=== PATIENT | female | born 1990 | race Two or more races ===

== ENCOUNTER 2024-09-10 06:41 | Emergency (ER) | payer MEDICAID, OTHER ==
[~2024-09-10] VITALS: Ht 167.6 cm; Wt 104.3 kg
--- NOTE | 2024-09-10 07:47 | ED.PDOC ---
General HPI Comments 34 y/o F, with no prior medical history presents to the ED for CC of flank pain. Patient states, she has been experiencing left-sided flank pain with associated LLQ abdominal pain, nausea, and vomiting x3days. Patient relays, associated symptoms of dysuria with scant urine production. Patient complains of, current 6/10 pain to her LLQ. Patient denies hematuria, fever, vaginal discharge, or frequency. No other symptoms or modifying factors present at this time. Chief Complaint: Flank Pain Time Seen by MD: 07:40 Reviewed notes: Nurses Notes, Medications, Allergies Allergies: Coded Allergies: No Known Drug Allergy (Verified Allergy, Unknown, 09/10/24) Information Source: Patient Mode of Arrival: Ambulatory Severity: Moderate Timing: Days Duration: Since onset Prehospital treatment: None Onset: Spontaneous Symptoms: None History of: None Location: (L)Flank Modifying factors: None associated signs and symptoms: Nausea, Vomiting, Flank Pain, None Past Medical History PAST MEDICAL HISTORY: Denies Surgical History: Denies all surgeries TRAVEL COUNSELOR History: Denies all TRAVEL COUNSELOR Hx Family History Family History: Unknown Social History Smoker: Non-Smoker Alcohol: Denies ETOH Use Drugs: Denies Drug Use Lives In: Home Constitutional: denies: chills, diaphoresis, fatigue, fever, malaise, sweats, weakness, others EENTM: denies: blurred vision, double vision, ear bleeding, ear discharge, ear drainage, ear pain, ear ringing, eye pain, eye redness, hearing loss, mouth pain, mouth swelling, nasal discharge, nose bleeding, nose congestion, nose pain, photophobia, tearing, throat pain, throat swelling, voice changes, others Respiratory: denies: cough, hemoptysis, orthopnea, SOB at rest, shortness of breath, SOB with excertion, stridor, wheezing, others Cardiovascular: denies: chest pain, dizzy spells, diaphoresis, Dyspnea on exertion, edema, irregular heart beat, left arm pain, lightheadedness, palpitations, PND, syncope, others Gastrointestinal: reports: abdominal pain (LLQ), constipated, nausea, vomiting; denies: abdomen distended, blood streaked bowels, diarrhea, dysphagia, difficulty swallowing, hematemesis, melena, poor appetite, poor fluid intake, rectal bleeding, rectal pain, others Genitourinary: reports: flank pain (LEFT ); denies: abnormal vagina bleeding, burning, dyspareunia, dysuria, frequency, hematuria, incontinence, pain, pregnan t, vagina discharge, urgency, others Neurological: denies: dizziness, fainting, headache, left sided numbness, left sided weakness, numbness, paresthesia, pre-existing deficit, right sided numbness, right sided weakness, seizure, speech problems, tingling, tremors, weakness, others Musculoskeletal: denies: back pain, gout, joint pain, joint swelling, muscle pain, muscle stiffness, neck pain, others Integumetry: denies: bruises, change in color, change in hair/nails, dryness, laceration, lesions, lumps, rash, wounds, others Allergic/Immunocompromised: denies: Difficulty Healing, Frequent Infections, Hives, Itching, others Hematologic/Lymphatic: denies: anemia, blood clots, easy bleeding, easy bruising, swollen glands, others Endocrine: denies: excessive hunger, excessive sweating, excessive thirst, excessive urination, flushing, intolerance to cold, intolerance to heat, unexplained weight gain, unexplained weight loss, others Psychiatric: denies: anxiety, bipolar disorder, depression, hopeless, panic disorder, schizophrenia, sleepless, suicidal, others All Other Systems: Reviewed and Negative Physical Exam General Appearance: No Apparent Distress, Normal HEENT: Normal ENT Inspection, Pharynx Normal Neck: Full Range of Motion, Non-Tender, Normal, Normal Inspection Respiratory: Chest Non-Tender, Lungs Clear, No Accessory Muscle Use, No Respiratory Distress, Normal Breath Sounds Cardiovascular: No Edema, No Murmur, No Gallop, Normal Peripheral Pulses, Regular Rate/Rhythm Breast Exam: Deferred Gastrointestinal: No Organomegaly, Non Tender, No Pulsatile Mass, Normal Bowel Sounds, Soft Genitalia: Deferred Pelvic: Deferred Rectal: Deferred Extremities: No calf tenderness, Normal capillary refill, Normal inspection, Normal range of motion, Non-tender, No pedal edema Musculoskeletal : Apperance: Normal Neurologic: Alert, cat swamper II-XII nml as Tested, No Motor Deficits, Normal Affect, Normal Mood, No Sensory Deficits Cerebellar Function: Normal Reflexes: Normal Skin: Dry, Normal Color, Warm Lymphatic: No Adenopathy Was a procedure done? Was a procedure done?: No Differential Diagnosis Kidney stone (Female): Pyelonephritis, Urinary obstruction, Urolithiasis Kidney stone (Male): N/A Penile/Scrotal: N/A Urinary Problem (Male): N/A Urinary Problem (Female): UTI X-Ray, Labs, Meds, VS Vital Signs Date Time Temp Pulse Resp B/P (MAP) Pulse Ox O2 Delivery O2 Flow Rate FiO2 09/10/24 09:30 76 17 100 Room Air* 0 21 09/10/24 09:30 98.2 76 17 138/95 (109) 100 98.2 09/10/24 08:16 98.7 60 16 137/91 (106) 98 98.7 09/10/24 08:16 60 16 98 Room Air 09/10/24 06:55 98.2 60 16 141/89 (106) 98 98.2 Lab Test 09/10/24 08:58 09/10/24 08:32 Range/Units White Blood Count 7.0 4.4-10.8 10^3/uL Red Blood Count 4.41 4.0-5.20 10^6/uL Hemoglobin 11.0 L 12.2-16.2 g/dL Hematocrit 34.2 L 36.0-46.0 % Mean Corpuscular Volume 77.6 L 80.0-100.0 fL Mean Corpuscular Hemoglobin 25.0 L 28.0-32.0 pg Mean Corpuscular Hemoglobin Concent 32.2 32.0-36.0 g/dL Red Cell Distribution Width 16.3 H 11.8-14.3 % Platelet Count 307 140-450 10^3/uL Mean Platelet Volume 8.2 6.9-10.8 fL Neutrophils (%) (Auto) 64.5 37.0-80.0 % Lymphocytes (%) (Auto) 24.1 10.0-50.0 % Monocytes (%) (Auto) 8.3 0.0-12.0 % Eosinophils (%) (Auto) 2.2 0.0-7.0 % Basophils (%) (Auto) 0.9 0.0-2.0 % Neutrophils # (Auto) 4.5 1.6-8.6 10 ^3/uL Lymphocytes # (Auto) 1.7 0.4-5.4 10 ^3/uL Monocytes # (Auto) 0.6 0-1.3 10 ^3/uL Eosinophils # (Auto) 0.2 0-0.8 10 ^3/uL Basophils # (Auto) 0.1 0-0.2 10 ^3/uL Nucleated Red Blood Cells 0.0 % Sodium Level 140 136-145 mmol/L Potassium Level 4.2 3.5-5.1 mmol/L Chloride Level 106 98-107 mmol/L Carbon Dioxide Level 25 20-31 mmol/L Anion Gap 9 5-15 Blood Urea Nitrogen 11 9-23 mg/dL Creatinine 0.72 0.550-1.02 mg/dL Glomerular Filtration Rate Calc 112 >90 mL/min BUN/Creatinine Ratio 15.3 10.0-20.0 Serum Glucose 100 74-106 mg/dL Calcium Level 9.8 8.7-10.4 mg/dL Total Bilirubin 0.3 0.2-1.0 mg/dL Aspartate Amino Transferase (AST) 23 13-40 U/L Alanine Aminotransferase (ALT) 26 7-40 U/L Alkaline Phosphatase 93 46-116 U/L Total Protein 7.2 5.7-8.2 g/dL Albumin 4.4 3.2-4.8 g/dL Urine Color Light-yellow Yellow Urine Clarity Turbid H Clear Urine pH 6.5 5.0-9.0 Urine Specific [place] 1.016 1.001-1.035 Urine Protein Negative Negative Urine Ketones Negative Negative Urine Blood Negative Negative /uL Urine Nitrite Negative Negative Urine Bilirubin Negative Negative Urine Urobilinogen Normal Negative mg/dL Urine Leukocyte Esterase Negative Negative /uL Urine RBC 1 0 - 4 /hpf Urine Microscopic WBC 1 0-5 /HPF Urine Squamous Epithelial Cells Few <5 /hpf Urine Bacteria None seen None Seen /hpf Urine Mucus Few None Seen Urine Glucose Normal Normal mg/dL Urine Test Negative Negative Current Medications Medications (Trade) Dose Ordered Sig/Daniel Route Start Time Stop Time Status Last Admin Ondansetron HCl (Zofran Po) 4 mg ONCE ONCE PO 09/10/24 08:30 09/10/24 08:31 DC 09/10/24 09:36 Ketorolac Tromethamine (Toradol Injection) 60 mg ONCE ONCE IM 09/10/24 08:30 09/10/24 08:31 DC 09/10/24 09:[address] [address] Ph: [phone] DIAGNOSTIC IMAGING Diagnostic Imaging Report : [id number] Signed PATIENT: VOLODYMYR CARVALHO ACCT: [id number] UNIT: [id number] : 1990 LOC: ER ROOM / BED: / AGE / SEX: 34 / F ADM STATUS: REG ER SERVICE 1 ORDERING PHYSICIAN: RACQUEL MENDEZ MD PROCEDURE(s): ABPL - CT AB PEL WO CON-NO ORAL OR IV REASON: Rule out kidney stones, constipation ORDER NUMBER(s): [id number], ACCESSION NUMBER(s): [id number] CT CT AB PEL WO CON-NO ORAL OR IV INDICATION: Rule out kidney stones, constipation EXAM DATE: 09/10/2024 09:16 AM COMPARISON: None RADIATION DOSE: CTDIvol: 25.42 mGy, DLP: 1458.18 mGy*cm PROCEDURE: Helical CT images were obtained of the abdomen and pelvis without IV contrast Sagittal and coronal reconstructions are provided. ORAL CONTRAST: None. ADDITIONAL IMAGES / REFORMATS: None All CT scans at this medical facility are performed using dose modulation techniques as appropriate to a performed exam including the following: Automated exposure control was utilized; adjustment of the MA and/or KV according to patient size; and use of iterative reconstruction technique. FINDINGS: LUNG BASE: Normal. LIVER: Normal. GALLBLADDER AND BILIARY TREE: No calcified gallstones. Normal caliber wall. No intra- or extrahepatic biliary ductal dilation. PANCREAS: Normal. SPLEEN: Normal. BOWEL: Mild fat stranding at the descending left hemicolon Could be mild colitis. The appendix is normal. ADRENALS: Normal. KIDNEYS AND URETER: Nonobstructive left kidney stone. BLADDER: Normal. REPRODUCTIVE ORGANS: There is a 5.1 cm left ovary cyst. LYMPH NODES:No lymphadenopathy. PERITONEUM: No ascites or free air. No other fluid collection. VESSELS: Scattered atherosclerotic calcifications are noted. RETROPERITONEUM: Normal. ABDOMINAL WALL: Normal. BONES: Scattered osseous degenerative changes are noted. IMPRESSION: Mild fat stranding at the descending left hemicolon Could be mild colitis. Nonobstructive left kidney stone. ATED BY: KAREEM CAREY MD DICTATED DATE/TIME: 09/10/24942 SIGNED BY: KAREEM CAREY MD SIGNED DATE/TIME: 09/10/24 0943 CC: 34-year-old female presents here with nausea vomiting and flank pain. At this time CBC BMP urinalysis were ordered. Patient was given Zofran and Toradol in the ED. Considered possible kidney stone, pyelonephritis. CT abdomen pelvis was done which does not demonstrate kidney stone does demonstrate mild colitis only. CBC and BMP unremarkable. Urine with no evidence of infection. At this time however prior to obtaining the results of the CT abdomen pelvis, the patient had eloped. However on my initial exam patient was generally well-a ppearing doubt acute surgical pathology. Time of 1ST Reevaluation: 08:20 Reevaluation 1ST: Unchanged Patient Education/Counseling: Diagnosis, Treatment Family Education/Counseling: No Family Present SEPSIS Sepsis Screen Date sepsis recognized/suspect: Sep 10, 2024 Time Sepsis recognized/suspect: 648 Recent Procedure: No On Antibiotic Therapy: No Respiratory Rate >20: No Heart Rate >90: No Temp<36 C (96.8 F) or >38.3 C: No SBP <90 or MAP <65 mmHG: No New Acute Mental Status Change: No Is the patient on CPAP, BIPAP,: No Physician Orders Ct Ab Pel Wo Con-No Oral Or Iv (09/10/24 08:22) Vital Signs Date Time Temp Pulse Resp B/P (MAP) Pulse Ox O2 Delivery O2 Flow Rate FiO2 09/10/24 09:30 76 17 100 Room Air* 0 21 09/10/24 09:30 98.2 76 17 138/95 (109) 100 98.2 09/10/24 08:16 98.7 60 16 137/91 (106) 98 98.7 09/10/24 08:16 60 16 98 Room Air 09/10/24 06:55 98.2 60 16 141/89 (106) 98 98.2 Laboratory Tests Test 09/10/24 08:58 White Blood Count 7.0 10^3/uL (4.4-10.8) Medications Medications Dose Ordered Sig/Daniel Route Start Time Stop Time Status Last Admin Dose Admin Ketorolac Tromethamine 60 mg ONCE ONCE IM 09/10/24 08:30 09/10/24 08:31 DC 09/10/24 09:36 Ondansetron HCl 4 mg ONCE ONCE PO 7/13/25 08:30 09/10/24 08:31 DC 09/10/24 09:36 Departure 1 Departure Time of Disposition: 12:05 Impression: Primary Impression: Colitis Disposition: 07 LEFT AWOL/ELOPED Condition: Fair Critical Care Note Critical Care Time?: No Stability Stability form required: No Heart Score Heart Score: Heart Score Response (Comments) Value History N/A 0 EKG N/A 0 Age N/A 0 Risk Factors N/A 0 Troponin N/A 0 Total 0 I personally scribed for RACQUEL MENDEZ MD ([email or web address]) on 09/10/24 at 07:47. Electronically submitted by Misty Marion ([email or web address]). I personally scribed for RACQUEL MENDEZ MD ([email or web address]) on 09/10/24 at 10:20. Electronically submitted by Misty Marion ([email or web address]). I personally scribed for RACQUEL MENDEZ MD ([email or web address]) on 09/10/24 at 10:21. Electronically submitted by Misty Marion ([email or web address]). RACQUEL MENDEZ MD Sep 10, 2024 07:47
[2024-09-10 09:01] LABS: Urine Protein, UAD Negative (Negative)
[2024-09-10 09:30] VITALS: BP 138/95; PULSE 76; RESP 17; TEMP 98.2; O2SAT 100
[2024-09-10 09:33] LABS: Hematocrit 34.2 % (36.0-46.0); Hemoglobin 11.0 g/dL (12.2-16.2); Mean Corpuscular Hemoglobin 25.0 pg (28.0-32.0); Mean Corpuscular Volume 77.6 fL (80.0-100.0); Nucleated Red Blood Cells % 0.0 %
[2024-09-10] MEDS: ONDANSETRON ODT 4 MG TAB PO ONE (09:36)
[2024-09-10] MEDS: KETOROLAC TROMETH 60MG/2ML VIAL IM ONE (09:36)
--- NOTE | 2024-09-10 09:45 | DVH ---
CT CT AB PEL WO CON-NO ORAL OR IV INDICATION: Rule out kidney stones, constipation EXAM DATE: 09/10/2024 09:16 AM COMPARISON: None RADIATION DOSE: CTDIvol: 25.42 mGy, DLP: 1458.18 mGy*cm PROCEDURE: Helical CT images were obtained of the abdomen and pelvis without IV contrast Sagittal and coronal reconstructions are provided. ORAL CONTRAST: None. ADDITIONAL IMAGES / REFORMATS: None All C T scans at this medical facility are performed using dose modulation techniques as appropriate to a p erformed exam including the following: Automated exposure control was utilized; adjustment of the MA and/or KV according to patient size; and use of iterative reconstruction technique. FINDINGS: LUNG BASE: Normal. LIVER: Normal. GALLBLADDER AND BILIARY TREE: No calcified gallstones. Normal caliber wall. No intra- or extrahepatic biliary ductal dilation. PANCREAS: Normal. SPLEEN: Normal. BOWEL: Mild fat stranding at the descending left hemicolon Could be mild colitis. The appendix is nor mal. ADRENALS: Normal. KIDNEYS AND URETER: Nonobstructive left kidney stone. BLADDER: Normal. REPRODUCTIVE ORGANS: There is a 5.1 cm left ovary cyst. LYMPH NODES:No lymphadenopathy. PERITONEUM: No ascites or free air. No other fluid collection. VESSELS: Scattered atherosclerotic calcifications are noted. RETROPERITONEUM: Normal. ABDOMINAL WALL: Normal. BONES: Scattered osseous degenerative changes are noted. IMPRESSION: Mild fat stranding at the descending left hemicolon Could be mild colitis. Nonobstructive left kidney stone.
[2024-09-10 09:55] LABS: Alanine Aminotransferase 26 U/L (7-40); Albumin 4.4 g/dL (3.2-4.8); Alkaline Phosphatase 93 U/L (46-116); Anion Gap 9 (5-15); BUN/Creatinine Ratio 15.3 (10.0-20.0); Blood Urea Nitrogen 11 mg/dL (9-23); Calcium 9.8 mg/dL (8.7-10.4); Carbon Dioxide 25 mmol/L (20-31); Chloride 106 mmol/L (98-107); Glucose 100 mg/dL (74-106); Potassium 4.2 mmol/L (3.5-5.1); Sodium 140 mmol/L (136-145); Total Protein 7.2 g/dL (5.7-8.2)
[2024-09-10 10:03] LABS: Bilirubin, Total 0.3 mg/dL (0.2-1.0)
== END 2024-09-10 14:03 | disposition left against medical advice (07) ==
LOC: ER 06:41
DX: K52.9 Noninfective gastroenteritis and colitis, unspecified (principal)
CPT/HCPCS: 36415; 74176; 80053; 81001; 81025; 85025; 96372; 99285; J1885; Q0162